=== PATIENT | female | born 1950 | race Caucasian/White ===

== ENCOUNTER 2017-01-23 08:41 | Outpatient (CLI) | payer MEDICARE ==
--- NOTE | 2017-01-23 10:08 | MRI ---
MRI LEFT KNEE WITHOUT CONTRAST: Date: 01/23/17 HISTORY: Left knee pain since fall on 12/06/16. COMPARISON: None. FINDINGS: Medial Meniscus: Intact. Lateral Meniscus: Intact. LCL, ACL, and PCL: Intact. There is Grade II partial tear of the anterior longitudinal fibers of the medial collateral ligament with some very mild stripping of the medial retinaculum from the medial femoral condyle. Extensor Mechanism: Quadriceps tendon, patella, and patellar tendon are all intact. Cartilage: Patellofemoral compartment: Intact. Medial compartment: Intact. Lateral compartment: There is an area of full thickness cartilage loss posterior flexion zone later al femoral condyle with subchondral cystic formation. There is also mild chondral fraying of the art icular surface lateral tibial plateau. Muscles: Normal muscle signal and bulk. IMPRESSION: 1. Grade II partial tear of the anterior longitudinal fibers of medial collateral ligament with veronica e adjacent stripping of the medial retinaculum common insertion. 2. Focal full thickness cartilage loss of the posterior flexion zone lateral femoral condyle with s ubchondral cyst formation. 3. 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 4. Low grade edema at the origin of the MCL at the medial femoral condyle, likely avulsive in natur e. POS: [facility]
== END 2017-01-23 08:42 | disposition home or self-care (01) ==
LOC: SCSMRI 08:41
PROVIDERS: ATTEND Orthopaedic Surgery
DX: M25.562 Pain in left knee (principal); S83.412A Sprain of medial collateral ligament of left knee, initial encounter; M94.262 Chondromalacia, left knee

== ENCOUNTER 2023-02-26 07:03 | Emergency (ER) | payer MEDICARE ==
[2023-02-26 08:14] LABS: #Eosinphils 0.2 thou/uL (0.0-0.7); #Monocytes 0.4 thou/uL (0.11-0.59); #Neutrophils 2.1 thou/uL (1.40-6.50); %Basophils 0.8 % (0.0-1.0); %Eosinophils 4.1 % (0.0-10.0); %Lymphocytes 30.6 % (21.0-51.0); %Monocytes 11.1 % (0.0-10.0); %Neutrophils 53.4 % (42.0-75.0); Hematocrit 37.2 % (36.0-47.0); Hemoglobin 12.9 g/dL (12.0-16.0); Mean Corpuscular HGB CONC 34.7 g/dL (32.0-36.0); Mean Corpuscular Hemoglobin 34.3 pg (27.0-31.0); Mean Corpuscular Volume 98.9 fl (78.0-98.0); Mean Platelet Volume 10.1 fL (7.4-10.4); Platelet Count 219 10x3/uL (130-400); RBC Distribution Width 12.6 % (11.5-14.5); Red Blood Cell (RBC) Count 3.76 mill/uL (4.20-5.40); White Blood Cell (WBC) Count 3.9 10x3/uL (4.8-10.8)
[2023-02-26 08:29] LABS: PTT 76.4 sec (22.9-36.1); Prothrombin Time 73.4 sec (12.0-14.7)
[2023-02-26 08:54] LABS: ALT (SGPT) 9 U/L (8-55); AST (SGOT) 19 U/L (5-34); Albumin 4.4 g/dL (3.4-4.8); Alkaline Phosphatase 71 U/L (40-110); Anion Gap 12 mmol/L (10-20); BUN (Urea Nitrogen) 16 mg/dL (9.8-20.1); Bilirubin, Total 0.5 mg/dL (0.2-1.2); Calc. Creatinine Clearance 0 mL/min (70-130); Calcium 9.2 mg/dL (7.8-10.44); Carbon Dioxide 26 mmol/L (23-31); Chloride 106 mmol/L (98-107); Estimated GFR 73; Globulin 2.8 g/dL (2.4-3.5); Glucose 110 mg/dL (83-110); Protein, Total 7.2 g/dL (5.8-8.1); Sodium 140 mmol/L (136-145)
[2023-02-26 08:55] LABS: INR-International Normal Ratio 8.4
== END 2023-02-26 10:05 | disposition home or self-care (01) ==
LOC: ERS 07:03
DX: T45.511A Poisoning by anticoagulants, accidental (unintentional), initial encounter (principal); M70.61 Trochanteric bursitis, right hip
CPT/HCPCS: 36415; 80053; 85025; 85610; 85730; 99284